=== PATIENT | female | born 1950 | race Caucasian/White ===

== ENCOUNTER 2019-03-05 12:38 | Emergency (ER) | payer OTHER ==
[~2019-03-05] VITALS: Ht 157.5 cm; Wt 99.1 kg
[2019-03-05] MEDS ORDERED: SERT100T12 PO (12:53)
[2019-03-05] MEDS ORDERED: ZIPR20CA2 PO (12:53)
[2019-03-05] MEDS ORDERED: BENZ1TAB10 PO (12:53)
[2019-03-05] MEDS ORDERED: SULFAMETHOX/TRIMETH DS 800-160 MG/TABLET PO ONE (14:00)
[2019-03-05] MEDS ORDERED: CEPHALEXIN MONOHYDRATE 500 MG CAPSULE PO ONE (14:00)
[2019-03-05] MEDS ORDERED: LIDOCAINE/PF 1% 5 ML VIAL INJ ONE (14:00)
[2019-03-05] MEDS ORDERED: ACETAMINOPHEN 500 MG TABLET PO ONE (14:00)
[2019-03-05 15:18] VITALS: BP 118/70
== END 2019-03-05 15:18 | disposition home or self-care (01) ==
LOC: EMS 12:38
DX: N76.4 Abscess of vulva (principal); F32.9 Major depressive disorder, single episode, unspecified; F20.9 Schizophrenia, unspecified; Z79.899 Other long term (current) drug therapy
CPT/HCPCS: 56405; 87070; 87077; 87186; 99284; J3490